=== PATIENT | male | born 1995 | race Caucasian/White ===

== ENCOUNTER 2017-03-15 06:49 | Day surgery (SDC) | payer BC ==
[~2017-03-15] VITALS: Ht 175.3 cm; Wt 97.1 kg
[2017-03-15] MEDS ORDERED: CEFAZOLIN SOD 2 GM in D5W 50 ML IV ONE (07:15)
[2017-03-15 08:20] VITALS: O2SAT 98
[2017-03-15] MEDS ORDERED: MIDAZOLAM HCL 5 MG/5 ML VIAL IVP ONE (08:27)
[2017-03-15] MEDS ORDERED: PROPOFOL 200MG/ 20ML VIAL (DIPRIVAN) IV ONE (08:27)
[2017-03-15] MEDS ORDERED: LR 1,000 ML IV.SOLN IV ONE (08:27)
[2017-03-15] MEDS ORDERED: NS IRRIG SOLN 5000 ML IR ONE (08:27)
[2017-03-15] MEDS ORDERED: KETOROLAC TROMETHAMINE 30 MG VIAL IVP ONE (08:27)
[2017-03-15] MEDS ORDERED: ONDANSETRON HCL 4 MG/2 ML VIAL IVP ONE (08:27)
[2017-03-15] MEDS ORDERED: SEVOFLURANE 15 MIN GAS INH ONE (08:27)
[2017-03-15] MEDS ORDERED: MORPHINE SULFATE 10MG/10ML PF AMP EP ONE (08:27)
[2017-03-15] MEDS ORDERED: fentaNYL CITRATE/PF 100 MCG/2 ML AMP IVP ONE (08:27)
[2017-03-15] MEDS ORDERED: LR 1,000 ML IV SCH (08:56)
[2017-03-15] MEDS ORDERED: KETOROLAC TROMETHAMINE 30 MG VIAL IVP PRN (09:00)
[2017-03-15] MEDS ORDERED: MEPERIDINE HCL/PF 25 MG/ML DISP.SYRIN IVP PRN ×2 (09:00)
[2017-03-15] MEDS ORDERED: HYDROmorphone 2 MG/ML VIAL IVP PRN ×2 (09:00)
[2017-03-15] MEDS ORDERED: HYDROmorphone 1 MG INJ. 1 MG/ML AMPUL IVP PRN (09:00)
[2017-03-15] MEDS ORDERED: ONDANSETRON HCL 4 MG/2 ML VIAL IVP PRN (09:00)
[2017-03-15 11:22] VITALS: BP 133/89; PULSE 67; RESP 16
== END 2017-03-15 11:10 | disposition home or self-care (01) ==
LOC: SDS 06:49 → SMU 06:50 → SDS 11:10
PROVIDERS: ATTEND Orthopaedic Surgery Sports Medicine
DX: S83.242A Other tear of medial meniscus, current injury, left knee, initial encounter (principal); M94.262 Chondromalacia, left knee; M67.52 Plica syndrome, left knee; J45.909 Unspecified asthma, uncomplicated; H69.80 Other specified disorders of Eustachian tube, unspecified ear; X58.XXXA Exposure to other specified factors, initial encounter; Y93.9 Activity, unspecified; Y92.89 Other specified places as the place of occurrence of the external cause; Y99.9 Unspecified external cause status
CPT/HCPCS: 29881; J0690; J1885; J2250; J2274; J2405; J2704; J3010; J7060; J7120